=== PATIENT | male | born 1970 | race Asian ===

== ENCOUNTER 2023-11-28 17:11 | Emergency (ER) | payer BC, SELFPAY ==
[2023-11-28 17:12] VITALS: BP 160/110
--- NOTE | 2023-11-28 18:00 | ED.GENMED ---
History of Present Illness
<KALPANA Selby - Last Filed: 11/28/23 18:14>
General
Chief Complaint: Cough
Source: patient
Exam Limitations: none
Time Seen by Provider: 11/28/23 17:47
Nursing documentation reviewed up to this point in time: agreed with
Travel History
Have you had any contact with someone who has COVID-19?: No
Do you have any symptoms of coronavirus? Fever > 100 degrees, chills, cough, shortness of breath, sore throat, loss of taste or smell, muscle aches, or headache?: No
History of Present Illness
History of Present Illness:
59 y/o M presents to ED complaining of cough x 21 days. Patient reports the cough has been constant and he has been producing yellow colored phlegm. He reports the past few days he has been having chest pain with the cough and without the cough. He
reports his chest feels 'tight'. Patient also reports that yesterday his son was diagnosed with the flu. Patient is now having runny nose, chills, headache, body aches, diarrhea, SOB and scratchy throat since yesterday. He has only been taking
tylenol for his symptoms, last taken 4 hours ago. He reports the tylenol is helping. Patient denies congestion, ear pain, nausea, vomiting, diarrhea, or palpitations. Patient does have a history of a 'scar' on his lungs. He reports it has been
unchanged.
If applicable-neuro sx onset
Onset of symptoms known: Yes
Date of onset of symptoms: 11/07/23
Past History
<KALPANA Selby - Last Filed: 11/28/23 18:14>
Past History
ED Past Medical History: NIDDM and Other (kidney stones)
ED Past Surgical History: Urological (lithotripsy)
Review of Systems
<KALPANA Selby - Last Filed: 11/28/23 18:14>
Review of Systems
Allergies reviewed?: Yes
All Other Systems: ROS reviewed and negative except as documented in HPI and ROS
Constitutional: Reports chills
EENT: Reports sore throat and runny nose
Respiratory: Reports cough and trouble breathing
Cardiac: Reports chest pain
ABD/GI: Reports no symptoms
: Reports no symptoms
Musculoskeletal: Reports no symptoms
Skin: Reports no symptoms
Neurological: Reports headache
Endocrine: Reports no symptoms
Hematologic/Lymphatic: Reports no symptoms
Psychiatric: Reports no symptoms
Phy Exam
<KALPANA Selby - Last Filed: 11/28/23 18:14>
General Physical Exam
General Presentation: well appearing
General age: appears stated age
General Skin: warm and dry
General Habitus: normal
General Mental: alert
General Hydration: appears well hydrated
ENT Exam
ENT Exam: EOMI and pharynx normal
Additional ENT: R TM normal, L TM perforated?
Eye Exam
Eye Exam: PERRL, EOMI and conjunctiva normal
Cardiovascular Exam
Cardiovascular Exam: regular rate/rhythm, no edema, no gallop, no murmur and normal peripheral pulses
Pulmonary Exam
Pulmonary Exam: lungs clear and decreased breath sounds
Gastrointestinal Exam
Gastrointestinal Exam: normal bowel sounds, non tender, soft and non distended
Neurological Exam
Neurological Exam: alert and oriented x3
Musculoskeletal Exam
Musculoskeletal Exam: full ROM
Skin Exam
Skin Exam: normal color, warm/dry and no rash
Psychiatric Exam
Psychiatric Exam: normal mood/affect
Course
<KALPANA Selby - Last Filed: 11/28/23 18:14>
Orders/Labs/Results
Orders:
Orders
11/28/23 17:14
Electrocardiogram (*1) Urgent
Reason for Study: Chest Pain
EKG- Treatment ONCE
11/28/23 18:12
Influenza A+B Rapid Molecular Urgent
SHERRIE Source: Nasal Swab
Specimen Description:
CXR2 [CR Chest - 2 Views ] Urgent
Comment:
Reason For Exam: decreased breath sounds, ongoing cough x 3 weeks
11/28/23 18:14
COVID-19 Antigen Urgent
Source: Nasal Swab
11/28/23 18:59
EKG [Electrocardiogram (*1)] Urgent
Reason for Study: Chest Pain
EKG- Treatment ONCE
11/28/23 19:11
Complete Blood Count/With Diff Urgent
Comprehensive Metabolic Panel Urgent
Troponin I Urgent
Abnormal Lab Results
11/28/23
19:11
MPV 11.0 H fL
(7.4-10.4)
Absolute Lymphs (auto) 1.1 L 10^3/uL
(1.2-3.4)
Monocytes % 11.5 H %
(1.7-9.3)
BUN 24 H mg/dl
(9-20)
Glucose 175 H mg/dl
(70-99)
11/28/23 19:11
11/28/23 19:11
Vital Signs
Initial and Last Documented VS:
Initial Vital Signs
Temp Pulse Resp BP Pulse Ox
99.1 F 98 16 160/110 98
11/28/23 17:12 11/28/23 17:12 11/28/23 17:12 11/28/23 17:12 11/28/23 17:12
Last Documented Vital Signs
Temp Pulse Resp BP Pulse Ox
99.1 F 81 43 134/96 95
11/28/23 17:12 11/28/23 20:00 11/28/23 19:05 11/28/23 20:00 11/28/23 20:00
<Melvin Partida, - Last Filed: 11/28/23 23:24>
Orders/Labs/Results
Orders:
Orders
11/28/23 17:14
Electrocardiogram (*1) Urgent
Reason for Study: Chest Pain
EKG- Treatment ONCE
11/28/23 18:12
Influenza A+B Rapid Molecular Urgent
SHERRIE Source: Nasal Swab
Specimen Description:
CXR2 [CR Chest - 2 Views ] Urgent
Comment:
Reason For Exam: decreased breath sounds, ongoing cough x 3 weeks
11/28/23 18:14
COVID-19 Antigen Urgent
Source: Nasal Swab
11/28/23 18:59
EKG [Electrocardiogram (*1)] Urgent
Reason for Study: Chest Pain
EKG- Treatment ONCE
11/28/23 19:11
Complete Blood Count/With Diff Urgent
Comprehensive Metabolic Panel Urgent
Troponin I Urgent
Abnormal Lab Results
11/28/23
19:11
MPV 11.0 H fL
(7.4-10.4)
Absolute Lymphs (auto) 1.1 L 10^3/uL
(1.2-3.4)
Monocytes % 11.5 H %
(1.7-9.3)
BUN 24 H mg/dl
(9-20)
Glucose 175 H mg/dl
(70-99)
11/28/23 19:11
11/28/23 19:11
Vital Signs
Initial and Last Documented VS:
Initial Vital Signs
Temp Pulse Resp BP Pulse Ox
99.1 F 98 16 160/110 98
11/28/23 17:12 11/28/23 17:12 11/28/23 17:12 11/28/23 17:12 11/28/23 17:12
Last Documented Vital Signs
Temp Pulse Resp BP Pulse Ox
99.1 F 81 43 134/96 95
11/28/23 17:12 11/28/23 20:00 11/28/23 19:05 11/28/23 20:00 11/28/23 20:00
<KALPANA Selby - Last Filed: 11/28/23 18:14>
MDM/Problems Addressed
Differential Diagnosis Includes:
PNA
COVID
Flu
URI
<Melvin Partida DO - Last Filed: 11/28/23 23:24>
*Critical Care Note
Total Time (30-74mins, 75-104mins- exclusive of procedures): Not Applicable
<Melvin Partida DO - Last Filed: 11/28/23 23:24>
Update Note
Update Note:
11/28/20232004 PM: Patient feeling better. Discussed EKG and troponin lab work with patient. Patient has influenza. He does have a history of a 21-day cough. Will prescribe steroids and cough medicine with follow-up with pulmonology for further
evaluation.
ED Attending Note
<KALPANA Selby - Last Filed: 11/28/23 18:14>
-
Portions of this chart may have been created with voice recognition software.� Occasional wrong word or��sound alike� substitutions may have occurred due to the inherent limitations of voice recognition software.
<Melvin Partida DO - Last Filed: 11/28/23 23:24>
ED Attending Note
Patient seen and examined by attending physician: Yes
I performed the substantive portion of visit, reviewed & personally made and approve the management plan that is documented in note by myself or MILA.: Yes
ED Attending Note:
Is a pleasant 59-year-old male that presents with a persistent cough for the last 3 weeks. He does report that the cough has been constant and occasionally productive of yellow phlegm. Patient does report having chest pain intermittently during
this timeframe. He states that for the last 24 hours, his chest has felt tight. He has been exposed to the flu as his son was diagnosed yesterday. Patient is now starting to develop more flulike symptoms. Patient was seen in conjunction with the
PA student. I have reviewed and agree with the history and treatment plan presented. On my independent physical exam, patient is awake, alert, and oriented x3, minimal acute distress. Heart is regular rate and rhythm. Lungs are clear to
auscultation bilaterally. Moves all 4 extremities. Skin is warm and dry.
EKG shows normal sinus rhythm rate 82 with normal intervals, normal axis. No evidence of acute ischemia present. He possibly left ventricular hypertrophy based on amplitude. EKG when compared with previous EKG dated November 03, 2022, similar
morphology and voltage noted.
Discharge Plan
Departure
Patient Disposition: Home (Routine Discharge)
Date of Disposition: 11/28/23
Time of Disposition: 20:06
Patient with high blood pressure during this ER visit?: Yes
Condition: Good
Discharge Problem:
Influenza A, Cough
Instructions: Flu, Adult (DC), Cough, Adult (DC), BLOOD PRESSURE
Prescriptions:
New
albuterol sulfate [ProAir HFA] 90 mcg/actuation HFA aerosol inhaler
1 puff inhalation Q4HPRN PRN (Reason: shortness of breath) Qty: 8.5 0RF
benzonatate 100 mg capsule
100 mg PO Q4H PRN (Reason: Cough) Qty: 20 0RF
prednisone 50 mg tablet
50 mg PO DAILY Qty: 5 0RF
No Action
metformin 1,000 MG tablet
1,000 mg PO BID
Referrals:
Melodie Lawler MD [Active] - Call in 1-3 days for appt
John Miller MD [Family Provider] -
Activity Restrictions/Additional Instructions:
Your prescriptions were sent to the pharmacy you specified
It was a pleasure meeting you and taking part in your care. We hope for your continued healing and wellness.
Please read discharge instructions in their entirety. However, they are for general education and may not describe your exact diagnosis at discharge. Information on your ER visit and medical conditions were discussed with you along with appropriate
follow up information...
If indicated, please take your medications as instructed and indicated on discharge paperwork.
Please schedule a follow up appointment as directed. Call to schedule an appointment
Please return to the emergency department with ANY change in, persisting, or worsening of symptoms. If any of your symptoms do not improve, or persist, or become more severe within 6-12 hours, please return to the emergency department for further
care.
Please return to the emergency department if you develop a headache, neck pain/stiffness, fever greater than 100.4F, chest pain, shortness of breath, persistent nausea, vomiting, slurred speech, difficulty walking, numbness/tingling, weakness, signs
of infection or any other symptoms that are worrisome to you.
If you have any questions or concerns please do not hesitate to call the Hospital at or E-mail me directly at [email or web address]
Interventions
Interventions:
*Risk Screen - Suicide Last Done: 11/28/23 18:15
*General Assessment Last Done: 11/28/23 18:15
*Neglect/Abuse Screening Last Done: 11/28/23 18:15
*ED COVID-19 Vaccine History Last Done: 11/28/23 17:12
*Nursing Disposition Last Done: 11/28/23 20:10
ED- Pulmonary Assessment Last Done: 11/28/23 18:15
Discharge Date and Time
Discharge Date/Time: 11/28/23 21:05
[2023-11-28 18:43] LABS: COVID-19 Antigen Negative (Negative)
[2023-11-28 19:05] VITALS: BP 128/90
[2023-11-28 19:18] LABS: % Basophils 0.2 % (0-2); % Eosinophils 0.4 % (0-6); % Immature Granulocytes 0.2 % (0-0.5); % Lymphocytes 22.6 % (20.5-51.1); % Monocytes 11.5 % (1.7-9.3); % Neutrophils 65.1 % (42.2-75.2); Absolute Lymphocytes 1.1 10^3/uL (1.2-3.4); Absolute Monocytes 0.6 10^3/uL (0.1-0.6); Absolute Neutrophils 3.1 10^3/uL (1.4-6.5); Hematocrit 43.5 % (39.0-52.0); Hemoglobin 14.7 g/dL (13.0-18.0); Mean Corp Hgb Conc. 33.8 g/dL (33.0-37.0); Mean Corpuscular Hgb 29.2 pg (27.0-31.0); Mean Corpuscular Volume 86.5 fL (80.0-94.0); Nucleated Red Blood Cells % 0 % (-); Platelet Count 141 10^3/uL (130-400); Red Blood Cell Count 5.03 10^6/uL (4.70-6.10); Red Cell Dist. Width 11.9 % (11.5-14.5); White Blood Cell Count 4.8 10^3/uL (4.8-10.8)
[2023-11-28 19:37] LABS: ALT (SGPT) 23 U/L (0-50); AST (SGOT) 26 U/L (17-59); Albumin 4.4 g/dl (3.5-5.0); Alkaline Phosphatase 75 U/L (38-126); Blood Urea Nitrogen 24 mg/dl (9-20); Calcium 8.9 mg/dl (8.4-10.2); Carbon Dioxide 27 mmol/L (22-30); Chloride 102 mmol/L (98-107); Glucose 175 mg/dl (70-99); Potassium 4.2 mmol/L (3.5-5.1); Sodium 135 mmol/L (135-145); Total Bilirubin 0.7 mg/dl (0.2-1.3); Total Protein 7.4 g/dl (6.3-8.2); eGFR > 60.00
[2023-11-28 19:49] LABS: Troponin I < 0.012 ng/ml
[2023-11-28 20:00] VITALS: BP 134/96
== END 2023-11-28 21:05 | disposition home or self-care (01) ==
LOC: EMR 17:11
PROVIDERS: EMERGENCY PHYSICIAN Student in an Organized Health Care Education/Training Program; FAMILY PHYSICIAN Internal Medicine
DX: J10.1 Influenza due to other identified influenza virus with other respiratory manifestations (principal); R05.9 Cough, unspecified; R51.9 Headache, unspecified; R19.7 Diarrhea, unspecified; Z11.52 Encounter for screening for COVID-19; R03.0 Elevated blood-pressure reading, without diagnosis of hypertension; E11.9 Type 2 diabetes mellitus without complications; Z79.84 Long term (current) use of oral hypoglycemic drugs; Z87.442 Personal history of urinary calculi
CPT/HCPCS: 99284; 71046; 80053; 84484; 85025; 87502; 87811; 93005

== ENCOUNTER 2024-01-18 14:06 | Observation (INO) | payer BC, SELFPAY ==
[2024-01-18] VITALS (13 sets, daily range): BP systolic 105–128; BP diastolic 65–95; PULSE 52–85; BMI 24.0; BMI 23.7
--- NOTE | 2024-01-18 12:00 | EDRN ---
Received patient on stretcher. Patient stated that he has been feeling dizzy since the end of December especially when he changes positions. Patient stated that he feels like the room is spinning when he stands up. Patient stated that it got worse
today and lost his balance and fell. Denies any weakness,numbness/tingling,speech difficulty,headache and visual changes. LUCIANO x 4 equally. Pupils are equal and reactive to light. Smile is equal. Tongue is midline.
[2024-01-18 12:20] LABS: % Basophils 0.8 % (0-2); % Eosinophils 1.1 % (0-6); % Immature Granulocytes 0.3 % (0-0.5); % Lymphocytes 41.8 % (20.5-51.1); % Monocytes 7.2 % (1.7-9.3); % Neutrophils 48.8 % (42.2-75.2); Absolute Lymphocytes 1.6 10^3/uL (1.2-3.4); Absolute Monocytes 0.3 10^3/uL (0.1-0.6); Absolute Neutrophils 1.8 10^3/uL (1.4-6.5); Hematocrit 46.3 % (39.0-52.0); Hemoglobin 15.2 g/dL (13.0-18.0); Mean Corp Hgb Conc. 32.8 g/dL (33.0-37.0); Mean Corpuscular Hgb 28.7 pg (27.0-31.0); Mean Corpuscular Volume 87.4 fL (80.0-94.0); Mean Platelet Volume 10.3 fL (7.4-10.4); Nucleated Red Blood Cells % 0 % (-); Platelet Count 166 10^3/uL (130-400); Red Cell Dist. Width 12.3 % (11.5-14.5); White Blood Cell Count 3.8 10^3/uL (4.8-10.8)
[2024-01-18 12:34] LABS: ALT (SGPT) 30 U/L (0-50); AST (SGOT) 25 U/L (17-59); Albumin 4.9 g/dl (3.5-5.0); Alkaline Phosphatase 73 U/L (38-126); Blood Urea Nitrogen 22 mg/dl (9-20); Calcium 9.5 mg/dl (8.4-10.2); Carbon Dioxide 25 mmol/L (22-30); Chloride 104 mmol/L (98-107); Estimated Creatinine Clearance 65 ml/min; Glucose 157 mg/dl (70-99); Potassium 4.5 mmol/L (3.5-5.1); Sodium 138 mmol/L (135-145); Total Bilirubin 0.9 mg/dl (0.2-1.3); Total Protein 7.7 g/dl (6.3-8.2); eGFR > 60.00
--- NOTE | 2024-01-18 12:35 | ED.GENMED ---
History of Present Illness
General
Chief Complaint: Dizziness
Time Seen by Provider: 01/18/24 11:30
Travel History
Have you had any contact with someone who has COVID-19?: No
Do you have any symptoms of coronavirus? Fever > 100 degrees, chills, cough, shortness of breath, sore throat, loss of taste or smell, muscle aches, or headache?: No
History of Present Illness
History of Present Illness:
53-year-old male with history of ccy-jiwazpb-pvxavefzv diabetes and hyperlipidemia presents to the emergency department for evaluation of dizziness and difficulty walking for the past 3 weeks. Symptoms are worsening, has had several falls as a
result of the gait instability. He also plays tennis and notes that he can no longer have the ball adequately which would be highly irregular for him. He denies any headaches or vision changes. Does feel as though his symptoms are worse when he
is upright or walking. No chest pain or shortness of breath, denies speech difficulty or extremity paresthesias
Past History
Past History
ED Past Medical History: NIDDM and Other (kidney stones)
ED Past Surgical History: Urological (lithotripsy)
Review of Systems
Review of Systems
Allergies reviewed?: Yes
All Other Systems: ROS reviewed and negative except as documented in HPI and ROS
Phy Exam
Physical Exam
Physical Exam:
GEN: Well appearing, NAD, WDWN
HEENT: Oral mucosa moist, no scleral icterus, no nasal congestion
Cardiac: Regular rate and rhythm, no murmurs
Lung: No respiratory distress, no tachypnea
MSK: No gross deformity or injuries
Skin: Good color, no pallor or jaundice, no rashes
Neuro: AO x3; CN II-XII grossly intact. BUE strength 5/5 in all osorio, sensation intact and symmetric. BLE strength 5/5 in all osorio, sensation intact and symmetric. No limb ataxia x 4. Profoundly positive Romberg, severe ataxia without
lateralized preference
Psych: Calm, cooperative
Course
Orders/Labs/Results
Orders:
Orders
01/18/24 11:13
EKG [Electrocardiogram (*1)] Urgent
Reason for Study: Vertigo / Dizzy
EKG- Treatment ONCE
01/18/24 11:46
CT Head W/o Iv Contrast Urgent
Comment:
Reason For Exam: dizziness/abnormal gait
01/18/24 11:56
Complete Blood Count/With Diff Urgent
Comprehensive Metabolic Panel Urgent
Ferritin Urgent
Comment: ADD ON
Folate Urgent
Comment: ADD ON
Glycohemoglobin (HgbA1c) Urgent
TSH Reflex To Free T4 Urgent
Comment: ADD ON
Vitamin B12 Urgent
Comment: ADD ON
01/18/24 12:34
Consult Neurology [NEUROLOGY CONSULT] Urgent
Consulting Provider: Spencer Lynn
Was physician already notified: Yes
01/18/24 13:13
Add On- LAB Routine
Tests Added?: folate, ferritin, TSH reflex, B12, lipid panel, hbA1c
01/18/24 13:16
Lipid Profile [Cardiovascular Evaluation] Routine
Comment: May add to blood work in lab
01/18/24 13:17
dimenhyDRINATE 50 mg IV NOW ONE
Orthostatic Vital Signs As Directed
Orthostatic VS Frequency: BID
Comment: lying flat x 3 mins then check, seated 3 minutes check, stand 3 mins check
Abnormal Lab Results
01/18/24
11:56
WBC 3.8 L 10^3/uL
(4.8-10.8)
MCHC 32.8 L g/dL
(33.0-37.0)
BUN 22 H mg/dl
(9-20)
Glucose 157 H mg/dl
(70-99)
01/18/24 11:56
01/18/24 11:56
Vital Signs
Initial and Last Documented VS:
Initial Vital Signs
Temp Pulse Resp BP Pulse Ox
97.9 F 58 17 123/87 100
01/18/24 11:14 01/18/24 11:14 01/18/24 11:14 01/18/24 11:14 01/18/24 11:14
Last Documented Vital Signs
Temp Pulse Resp BP Pulse Ox
97.9 F 58 17 123/87 100
01/18/24 11:14 01/18/24 11:14 01/18/24 11:14 01/18/24 11:14 01/18/24 11:45
MDM/Problems Addressed
MDM/Problems Addressed:
53-year-old male presents due to ataxia and gait instability. Neurologic exam is remarkable for ataxia and positive Romberg, initial head CT is unremarkable. Diagnostic considerations at this time include subacute stroke,
neurodegenerative/demyelinating syndrome, orthostasis, autonomic dysfunction. Patient was seen in consultation by neurology and at this time recommending admission for further neurologic workup
Comment
Comment:
EKG independently interpreted by me shows a sinus bradycardia at a rate of [address] changes concerning for ischemia, QTc of 364
*Critical Care Note
Total Time (30-74mins, 75-104mins- exclusive of procedures): Not Applicable
ED Attending Note
-
Portions of this chart may have been created with voice recognition software.� Occasional wrong word or��sound alike� substitutions may have occurred due to the inherent limitations of voice recognition software.
Discharge Plan
Departure
Patient Disposition: Admit
Date of Disposition: 01/18/24
Time of Disposition: 13:21
Admit to: Med/Surg
Presentation/result/management discussed w/ accepting MD/DO: Hospitalist
Discharge Problem:
Ataxia
Prescriptions:
No Action
metformin 1,000 MG tablet
1,000 mg PO BID
albuterol sulfate [ProAir HFA] 90 mcg/actuation HFA aerosol inhaler
1 puff inhalation Q4HPRN PRN (Reason: shortness of breath) Qty: 8.5 0RF
benzonatate 100 mg capsule
100 mg PO Q4H PRN (Reason: Cough) Qty: 20 0RF
prednisone 50 mg tablet
50 mg PO DAILY Qty: 5 0RF
Referrals:
John Miller MD [Family Provider] -
Interventions
Interventions:
*Risk Screen - Suicide Last Done: 01/18/24 11:14
*General Assessment Last Done: 01/18/24 11:14
*Neglect/Abuse Screening Last Done: 01/18/24 11:14
ED- Fall Risk Assessment Last Done: 01/18/24 11:45
*ED COVID-19 Vaccine History Last Done: 01/18/24 11:14
ED- Neurological Assessment Last Done: 01/18/24 11:45
ED- Cardiac Assessment Last Done: 01/18/24 11:45
Discharge Date and Time
Print Language: EGYPTIAN
--- NOTE | 2024-01-18 12:56 | CON.NEURO4 ---
Addendum entered and electronically signed by Spencer Lynn MD 01/18/24 14:21:
Studies reviewed.
I have personally examined the patient. I reviewed and agree with the OFFICE CLERK's Note.
My addenda:
Awake, alert, interactive. No acute distress.
Speech intact.
Follows 2-step requests w/o difficulty. No tremor. Negative Hints testing
Extra-ocular movements grossly intact.
Facial movements full and symmetric. Hearing intact to normal conversational volume.
Normal UE movements bilaterally.
Neck: full ROM.
Chest: no dyspnea
Heart: no JVD
Ext: (-) Clubbing, (-) Cyanosis, (-) Edema
IMPRESSIONS/RECOMMENDATIONS:
Abrupt onset of dizziness
Unclear if this represents 2 processes including acute axial cerebellar lesion in the form of a stroke as well as orthostasis
Check MRI of brain with MRA head and neck to determine if stenosis is present and/or stroke
Rehabilitation evaluations
Follow orthostatic blood pressures
Encourage water intake for possible orthostasis
Provide dimenhydrinate
Okay to start aspirin 81 mg daily
Follow lipid profile
Goal of normoglycemia
Goal of normotension as the patient symptomatology began weeks ago
Will continue to follow patient.
Original Note:
Documented by User: Gretchen Garcia NP 01/18/24 14:12
Consultation - Neurology 4
-
CONSULTING PHYSICIAN: Spencer Lynn MD
REFERRING PHYSICIAN: ER/Christopher Klein PA-C
DICTATED BY: CHENG Beltrán
DATE/TIME OF REQUEST: 01/18/24
DATE/TIME OF CONSULTATION: 01/18/24
Reason for Consultation: Dizziness, ataxia
History of Present Illness:
This is a 53-year-old right-handed male who has presented to the hospital with report of dizziness and ataxia. Patient report that on 12/29/23 he only slept for a few hours and then completed a [address] That evening he developed a sudden onset
spinning sensation lasting a few minutes. In the following days he reports continuing to have short bursts of spinning dizziness that were becoming longer as the days passed. Additionally, he reports feeling light-headed and off-balance with
position change and ambulation. This has been worsening too and for the past three days has been constant. His gait is unsteady and if he doesn't hold onto something for balance he falls to his left or right. Lying down still makes his symptoms
improve but moving at all triggers a dizzy sensation. He is very active and plays tennis frequently. Three days ago on 01/15/24 he was playing tennis and reports that he was uncoordinated, he couldn't get his racket to hit the ball which is extremely
unusual for him. He denies any headache, neck/back pain, vision changes, speech/swallow difficulty, hearing changes/tinnitus, numbness, weakness, nausea/vomiting, chest pain, palpitations, and shortness of breath. He denies any issues with hand
dexterity/using his cell phone. He was unable to get into see his PCP for several weeks so he decided to go to urgent care this morning. They checked his orthostatic vital signs and noted that his SBP went from 120 to 90 with sitting up and they
referred him to the ER for evaluation. CT head was obtained on arrival to the ER and is negative for any acute abnormalities. He denies any recent fevers/illness, and history of vertigo, TIA, or stroke in the past and he is not taking any blood
thinning medications. He was provided aspirin 162mg in the ER.
Past Medical History: NIDDM, HLD, renal calculi
Surgical History: uretal stent
Family History: Reviewed and noncontributory.
Social History: Former tobacco.
Allergies: No known allergies.
Home Medications: See below.
Review of Symptoms:
Patient denies any fever, headache, chest pain, shortness of breath, GI or symptoms.
�Per the HPI.�All systems are reviewed negative except above.
Physical Exam:
The patient is afebrile, abdomen is nondistended, breathing is unlabored, skin is warm and dry, no edema.
NIH Stroke Scale:
I performed the NIH stroke scale on the patient on 01/18/24 at 1300. The patient scored 0 points on the NIH stroke scale assessment, which were assigned as follows: See below.
Neurologic Examination:
The patient is awake, alert and oriented x 3. He is able to follow commands and answer questions appropriately. There is no aphasia or dysarthria. On cranial nerve assessment, pupils are 3 mm bilateral, round and reactive to light and
accommodation. Visual boyle are full. Extraocular movements are intact. No nystagmus. Facial sensations are intact and bilaterally symmetrical, there is no facial asymmetry. Hearing is intact bilaterally to normal conversation volume. Tongue palate
and uvula are midline. Sternocleidomastoid strengths are full bilaterally. Motor strengths are 5/5 bilateral upper and lower extremities on medical research Shubuta scale. There is no drift or involuntary movement noted. Deep tendon reflexes are 2+
bilateral upper and 1+ lower extremities and Babinski is absent bilaterally. There was no extinction noted on double simultaneous stimulation. Coordination is intact by finger to nose bilaterally.
Lab Results: See below.
Neuro Imaging:
1. CT Head 01/18/24: There are no intracranial abnormalities. There is mild left ethmoid sinusitis
Differentials for the patient's presentation include:
1. Concern for a brainstem stroke.
2. Orthostatic hypotension.
Patient has the following risk factors for their symptoms: NIDDM, HLD
IV Tenecteplase/IAT candidacy: He is not a candidate for TNK/IAT due to outside of time window.
Recommendations:
-Continue aspirin 81mg daily.
-MRI brain noncontrast, MRA head/neck ordered/pending.
-Check orthostatic vital signs BID. Encourage increased fluid intake.
-Provide dimenhydrinate 50mg IV x1 now and q4hrs PRN dizziness.
-Checking blood work for metabolic abnormalities.
-If MRI brain demonstrates a stroke, LDL goal will be <70. Lipid panel pending.
-Goal normoglycemia, hbA1c pending.
-NIHSS and neurological checks per unit guidelines.
-Provide patient with a stroke education packet.
-PT/OT/ST evaluations.
-DVT prophylaxis.
Discussed patient care with: Dr. Lynn, the patient
Vital Signs and Labs
-
Vital Signs and Labs:
Vital Signs
Temp Pulse Resp BP Pulse Ox
97.9 F 58 17 123/87 100
01/18/24 11:14 01/18/24 11:14 01/18/24 11:14 01/18/24 11:14 01/18/24 11:45
Lab Results
01/18/24 11:56
01/18/24 11:56
Sodium 138 mmol/L (135-145) 01/18/24 11:56
Potassium 4.5 mmol/L (3.5-5.1) 01/18/24 11:56
BUN 22 mg/dl (9-20) H 01/18/24 11:56
Glucose 157 mg/dl (70-99) H 01/18/24 11:56
Calcium 9.5 mg/dl (8.4-10.2) 01/18/24 11:56
NIH Stroke Score
Subsequent NIH Scale
Date of Subsequent NIH Scale: 01/18/24
Time of Subsequent NIH Scale: 13:00
NIH Stroke Score
Level of Consciousness: 0 - Alert
LOC Questions: 0-Answers both correctly
LOC Commands: 0-Performs both correctly
Best Horizontal Gaze: 0-Normal
Visual Boyle: 0=Normal, no visual loss
Facial Palsy: 0=Normal, symmetrical
Motor - Right Arm: 0=No drift 10 seconds
Motor - Left Arm: 0=No drift 10 seconds
Motor - Right Le-No drift 5 seconds
Motor - Left Le-No drift 5 seconds
Limb Ataxia: 0-Absent
Sensation: 0-Normal
Best Language: 0-No aphasia
Dysarthria: 0-Normal
Extinction and Inattention: 0-No abnormality
Total Score:: 0
Medications
-
Home Medications
�Medication �Instructions �Recorded
metformin 1,000 mg tablet 1,000 mg PO BID 03/02/17
albuterol sulfate 90 mcg/actuation 1 puff inhalation Q4HPRN PRN 11/28/23
aerosol inhaler (ProAir HFA) shortness of breath #8.5 grams
benzonatate 100 mg capsule 100 mg PO Q4H PRN Cough #20 caps 11/28/23
prednisone 50 mg tablet 50 mg PO DAILY #5 tabs 11/28/23

Documented by User: Spencer Lynn MD 01/18/24 14:14
NIH Stroke Score
NIH Stroke Score
Total Score:: 0
--- NOTE | 2024-01-18 13:22 | HPS.HSE ---
Family Physician
-
Family Physician: John Miller
Chief Complaint
-
Dizziness
History of Present Illness
53-year-old male with history of emz-dbyokqp-zrcyxedie diabetes and hyperlipidemia presents to us with dizziness and difficulty walking for the past 3 weeks. Stated dizziness started 20 days ago. He was getting intermittent dizziness.
Progressively got worse. Patient stated, he is off balance. He also plays tennis and notes that he can no longer have the ball adequately which would be highly irregular for him. Patient gets extremely dizzy and feel like the room is spinning
when he changes the position. Complaint of very light headache on top of his head. he denies blurry vision, numbness, tingling . Patient denied any chest pain or short of breath .patient denied abdominal pain, nausea, vomiting, diarrhea. Patient
denied dysuria hematuria.
Head CT with no acute findings. Admitting for further management
Medical History
Past Medical History
Past Medical History: Reports Other
Additional Past Medical History:
Kidney stones
Type 2 diabetes
Hyperlipidemia
Bradycardia
Past Surgical History: Reports Other
Additional Past Surgical History:
Kidney stone surgery
Social History
Tobacco: Non-smoker
Alcohol: None
Drug: None
Personal:
Living: With Family
Family History
Family History: Not pertinent
Allergies / Home Medications
Allergies reflects when Allergies were last updated in [employer].
Home Medications with original date entered in [employer]
Allergy/Medication List:
Allergies
Allergy/AdvReac Type Severity Reaction Status Date / Time
No Known Allergies Allergy Verified 11/28/23 17:14
Home Medications
metformin 1,000 mg tablet 1,000 mg PO BID 03/02/17
albuterol sulfate 90 mcg/actuation aerosol inhaler (ProAir HFA) 1 puff inhalation Q4HPRN PRN shortness of breath #8.5 grams 11/28/23
benzonatate 100 mg capsule 100 mg PO Q4H PRN Cough #20 caps 11/28/23
prednisone 50 mg tablet 50 mg PO DAILY #5 tabs 11/28/23
Review of Systems
-
Constitutional: Reports No Symptoms
EENT: Reports No Symptoms
Respiratory: Reports No Symptoms
Cardiac: Reports No Symptoms
Abdomen/GI: Reports No Symptoms
: Reports No Symptoms
Musculoskeletal: Reports No Symptoms
Skin: Reports No Symptoms
Neurological: Reports Dizzy and Headache
Endocrine: Reports No Symptoms
Hematologic/Lymphatic: Reports No Symptoms
Psych: Reports No Symptoms
Physical Exam
Vital Signs
Vital Signs
Temp Pulse Resp BP Pulse Ox
97.9 F 58 17 123/87 100
01/18/24 11:14 01/18/24 11:14 01/18/24 11:14 01/18/24 11:14 01/18/24 11:45
Physical Exam
General: Well Developed, Well Nourished and No Apparent Distress
HEENT: NormoCephalic, Moist mucous membranes and Atraumatic
Respiratory: Clear
Cardiac: S1/S2 and Regular Rhythm; No Murmur or Rub
GI: Soft, Non Tender, Non Distended and Normal Bowel Sounds; No Organomegaly
Rectal: Deferred by Provider
Musculoskeletal: No Clubbing, No Cyanosis and No Edema
Skin: No Rash
Neuro: AO x 3 and Nonfocal/grossly intact
Psych: Calm
Laboratory Results
-
01/18/24 11:56
01/18/24 11:56
Laboratory Results
Total Bilirubin 0.9 mg/dl (0.2-1.3) 01/18/24 11:56
AST 25 U/L (17-59) 01/18/24 11:56
ALT 30 U/L (0-50) 01/18/24 11:56
Alkaline Phosphatase 73 U/L (38-126) 01/18/24 11:56
Data Reviewed
-
CT Scan: Report Reviewed by me
Lab Data: Labs Reviewed by me
Impression/Plan
-
# New onset ataxia rule out acute CVA/TIA
-CT head negative
-MRI/MRA
-Obtain A1c and lipid profile
-Aspirin and statin continued
-PT/OT consult
-Neurology consulted
#DM-2
Hold Metformin
-CHo diet
-sliding scale
#Hypercholesterolemia
-statin continued
#DVT proph: SCDs.
[2024-01-18] MEDS: dimenhyDRINATE 50 MG IV (13:48)
[2024-01-18] MEDS: NSS (PRESERVATIVE FREE) 10 ML INJ (13:48)
[2024-01-18 14:07] LABS: Glycohemoglobin (HgbA1c) 7.8 % (4.0-5.6)
--- NOTE | 2024-01-18 14:24 | W.PN.UPDATE ---
Update Note
Progress Note Update
This note serves as an addendum to H&P written by CELL OPERATION SUPERVISOR Karina Mancuso
I saw and examined the patient.
The CELL OPERATION SUPERVISOR's note was reviewed and I agree with the note.
Comment:
Mr. Marline Edward is a 53 yo man with hx DM who presents to the ER with 20 days of dizziness with worsening balance issues and coordination over past 10 days. + vertigo. Triage vitals stable. Labs with WBC 3.8, Hg 15.2, Na 138, Cr 1.3, Glucose 157.
Head CT without acute event.
Patient will be admitted for further work-up with MRI/MRA. Give aspirin now and continue daily. PT/OT. Appreciate Neuro.
[2024-01-18] MEDS: LOW STRENGTH ASPIRIN 162 MG PO (14:25)
[2024-01-18 16:02] LABS: TSH Reflex To Free T4 2.55 uIU/ml (0.47-4.68)
[2024-01-18 16:37] LABS: Folate > 20.0 ng/ml (2.76-20); Vitamin B12 601 pg/ml (239-931)
[2024-01-18 18:01] LABS: HDL Cholesterol 39 mg/dl; LDL Cholesterol, Calculated 104 mg/dl; Total Cholesterol 160 mg/dl (50-199); Triglyceride 85 mg/dl (10-149); Very Low Density Lipoprotein 17 mg/dl (0-30)
--- NOTE | 2024-01-18 18:15 | PTCARENOTE ---
01/17- Patient transferred and oriented to unit without issue. AAOX3; current NIH=0; Neuro checks WNL at this time; Skin CDI. Patient denies any complaints or needs at this time.
[2024-01-18 18:18] LABS: Glucose - Point of Care 106 mg/dl (70-99)
[2024-01-18] MEDS: NOVOLOG FLEXPEN-LOW RESISTANCE SC (18:23)
--- NOTE | 2024-01-18 18:35 | EDRN ---
Patient taken to room 419-1 on stretcher on monitor by speech therapist technician.
[2024-01-18 21:56] LABS: Glucose - Point of Care 177 mg/dl (70-99)
[2024-01-19] VITALS (7 sets, daily range): BP systolic 105–134; BP diastolic 61–96; PULSE 48–84
--- NOTE | 2024-01-19 04:54 | DOWNTIME ---
There was a [employer] Client Sizing Machine Operator Downtime on 01/19/2024 from 0100 to 01/19/2024 at 0439. Downtime documentation of patient's care, including medication administrations, has been reconciled in the electronic record per guidelines. Refer to the
patient's paper chart under the miscellaneous tab to see printed paper medication records and downtime forms.
--- NOTE | 2024-01-19 07:29 | W.PN.NEURO.1 ---
Today's Communication / Plan
-
Rehabilitation evaluations
Follow orthostatic blood pressures
Provide dimenhydrinate
Discontinue aspirin 81 mg daily
Atorvastatin as outpatient due to lipid profile showing LDL > 100
Goal of normoglycemia
Goal of normotension
We will follow as needed.
Neuro Assessment/Plan
Assessment
IMPRESSIONS/RECOMMENDATIONS:
Abrupt onset of dizziness
No evidence acute processes of a stroke or orthostasis
MRI of brain with MRA head and neck to determine if stenosis is present and/or stroke are normal
Plan
Rehabilitation evaluations
Follow orthostatic blood pressures
Provide dimenhydrinate
Discontinue aspirin 81 mg daily
Atorvastatin as outpatient due to lipid profile showing LDL > 100
Goal of normoglycemia
Goal of normotension
We will follow as needed.
Subjective/Objective
Subjective Data
Date of Service: January 19, 2024
Objective Data
Vital Signs
Temp Pulse Resp BP Pulse Ox
36.3 C 55 18 121/78 98
01/19/24 03:50 01/19/24 03:50 01/19/24 03:50 01/19/24 03:50 01/19/24 03:50
Sodium 138 mmol/L (135-145) 01/18/24 11:56
Potassium 4.5 mmol/L (3.5-5.1) 01/18/24 11:56
BUN 22 mg/dl (9-20) H 01/18/24 11:56
Glucose 157 mg/dl (70-99) H 01/18/24 11:56
Calcium 9.5 mg/dl (8.4-10.2) 01/18/24 11:56
LDL Cholesterol, Calc Cancelled 01/18/24 13:16
Vitamin B12 601 pg/ml (239-931) 01/18/24 11:56
Patient Allergies
No Known Allergies Allergy (Verified 11/28/23 17:14)
Past History
Past History
ED Past Medical History: NIDDM and Other (kidney stones)
ED Past Surgical History: Urological (lithotripsy)
Family History
Family History: Other (reviewed and non-contributory)
Medications
-
Medications:
Generic Name Dose Route Start Last Admin
Trade Name Freq PRN Reason Stop Dose Admin
Acetaminophen 650 mg 01/18/24 18:12
Acetaminophen 650 Mg Rectal Suppository RECTAL 02/15/24 18:11
Q4HPRN PRN
BLISS, mild pain, or temp >100.4F
Acetaminophen 650 mg 01/18/24 18:12
Acetaminophen 325 Mg Tablet PO 02/15/24 18:11
Q4HPRN PRN
BLISS, mild pain, or temp >100.4F
Aspirin 81 mg 01/19/24 08:00
Aspirin 81 Mg Chewable Tablet PO 02/16/24 07:59
DAILY NAJMA
Atorvastatin Calcium 40 mg 01/18/24 18:12 01/18/24 19:13
Atorvastatin (Lipitor) 40 Mg Tablet PO 02/15/24 18:11 Not Given
QPM NAJMA
Dextrose 12.5 grams 01/18/24 18:12
Dextrose 50% (0.5 Grams/Ml) 50 Ml Syringe IV 02/15/24 18:11
[id number] PRN
hypoglycemia
Protocol
Dimenhydrinate 50 mg 01/18/24 18:00
Dimenhydrinate 50 Mg/Ml Vial IV 02/15/24 17:59
Q4HPRN PRN
dizziness
Glucagon 1 mg 01/18/24 18:12
Glucagon 1 Mg Vial IM 02/15/24 18:11
PRN PRN
hypoglycemia
Protocol
Insulin Aspart 0 units 01/18/24 18:12 01/18/24 18:23
Insulin Aspart Low Resistance 300 Units/3 Ml Pen.Injctr SC 02/15/24 18:11 Not Given
AC NAJMA
Protocol
Sodium Chloride 10 ml 01/18/24 18:00
Sodium Chloride 0.9% (Preservative Free) 10 Ml Vial INJ 02/15/24 17:59
Q4HPRN PRN
IV dimenhyDRINATE dilution
[2024-01-19 08:54] LABS: Glucose - Point of Care 141 mg/dl (70-99)
[2024-01-19] MEDS: NOVOLOG FLEXPEN-LOW RESISTANCE SC (09:00)
[2024-01-19 10:18] LABS: Hematocrit 46.5 % (39.0-52.0); Hemoglobin 15.2 g/dL (13.0-18.0); Mean Corp Hgb Conc. 32.7 g/dL (33.0-37.0); Mean Corpuscular Hgb 28.3 pg (27.0-31.0); Mean Corpuscular Volume 86.6 fL (80.0-94.0); Mean Platelet Volume 10.7 fL (7.4-10.4); Platelet Count 167 10^3/uL (130-400); Red Blood Cell Count 5.37 10^6/uL (4.70-6.10); Red Cell Dist. Width 12.2 % (11.5-14.5); White Blood Cell Count 4.1 10^3/uL (4.8-10.8)
[2024-01-19 11:10] LABS: Blood Urea Nitrogen 25 mg/dl (9-20); Calcium 9.3 mg/dl (8.4-10.2); Carbon Dioxide 26 mmol/L (22-30); Chloride 104 mmol/L (98-107); Estimated Creatinine Clearance 70 ml/min; Glucose 145 mg/dl (70-99); Potassium 4.5 mmol/L (3.5-5.1); Sodium 137 mmol/L (135-145); eGFR > 60.00
--- NOTE | 2024-01-19 11:25 | W.PN.HOSP.TC ---
Today's Communication/Plan
-
F/U TTE results
Assessment / Plan
Assessment / Plan
Mr. Marline Edward is a 53 yo man with hx DM who presents to the ER with 20 days of dizziness with worsening balance issues and coordination over past 10 days,
BRAIN MRI
HEAD MRA
NECK MRA
IMPRESSION:
No acute intracranial abnormality noted.
No focal hemodynamically significant stenosis, aneurysm or occlusion.
Dizziness
Orthostasis
-unclear etiology of persistent orthostasis as patient states he has been eating and drinking normally
-give 1L IVF now and recheck orthostats afterwards
-F/U TTE results
-tele with HR high 50's, low 60's - HR increased appropriately past orthostatic VS
-MRI results above
-TSH, B12 WNL
Anticipated Discharge: Within 24 hours
Subjective/Interval History
-
Date of Service: January 19, 2024
dizzy with standing
no chest pain
no weakness, numbness/tingling
Objective Data
-
Labs:
Laboratory Results
01/19/24
08:52
WBC 4.1 L
Hgb 15.2
Hct 46.5
Plt Count 167
Sodium 137
Potassium 4.5
Chloride 104
Carbon Dioxide 26
BUN 25 H
Creatinine 1.2
Glucose 145 H
Calcium 9.3
Vital Signs:
Vital Signs
Temp Pulse Resp BP Pulse Ox
98.0 F 82 16 132/81 94
01/19/24 09:08 01/19/24 09:08 01/19/24 09:08 01/19/24 09:08 01/19/24 09:08
I&O
01/18/24 01/19/24 01/20/24
06:59 06:59 06:59
Intake Total 720 / 720
Output Total 0 / 0
Balance 720 / 720
Review of Systems
-
History Source: Patient
All other systems: Reviewed and negative
Physical Exam
-
General: No Apparent Distress
HEENT: PERRLA
Respiratory: Clear to Auscultation; Negative Wheezes
Cardiac: Regular Rhythm and S1/S2
GI: Soft and Nontender
Musculoskeletal: No Edema
Skin: Warm and Dry; Negative Rash
Neuro: AO x 3
Psych: Calm
Data Reviewed
-
Diagnostic Radiology: Report Reviewed by me
Labs: Labs Reviewed by me
[2024-01-19] MEDS: NSS 1000 IV (11:31)
[2024-01-19 11:51] LABS: Glucose - Point of Care 287 mg/dl (70-99)
[2024-01-19 12:15] LABS: Troponin I < 0.012 ng/ml
[2024-01-19] MEDS: NOVOLOG FLEXPEN-LOW RESISTANCE 3 UNITS SC (12:15)
--- NOTE | 2024-01-19 12:50 | PTCARENOTE ---
01/18- [facility]: LAY: 131/81, 62; SIT: 134/88, 75; STAND: 132/90, 84 (See Orthostatic VS Intervention), reported to Physician via TT as ordered. Patient reports momentary dizziness from [id number] position only, and only for
~5seconds. Dizziness self-resolved, Posture remains straight and steady.
--- NOTE | 2024-01-19 13:20 | W.DS.TRANS ---
DC Summary - [employer]
-
Discharge Instructions:
Discharge Diagnosis/Procedures orthostatic hypotension
Diet Low Cholesterol
Activity As tolerated
Driving Restrictions As prior to admission
Bathing Restrictions None
Instructions: Dehydration, Adult (DC)
Stand-Alone Forms:
Changes to Home Medications: No
Discharge Medications:
DC Medications w/original date entered in [employer]
metformin 1,000 mg tablet 1,000 mg PO BID Diabetes 03/02/17
Home Medication Changes
Pending Results: No
--- NOTE | 2024-01-19 13:39 | PTOTSP ---
SPEECH THERAPY SWALLOW AND SPEECH/LANGUAGE/COGNITIVE COMMUNICATION EVALUATION:
Patient presents with oropharyngeal swallow function grossly WFL at this time. Recommend Regular texture diet, thin liquids. Medications whole with liquid as best tolerated. Swallow therapy is not indicated at this time; sign off swallow therapy.
Patient exhibits speech/language/cognitive communication skills grossly WFL at this time. Patient appears to be at baseline level of functioning. No speech therapy services are indicated at this time. Speech therapy to sign off.
RECOMMEND:
1) Regular texture diet, thin liquids
2) Medications whole with liquid as best tolerated
3) Swallow and speech therapy are not indicated at this time
--- NOTE | 2024-01-19 14:10 | W.DCSUMMARY ---
Discharge Summary
Discharge Data
Date of Admission: 01/18/24
Date of Discharge: 01/19/24
-
Pending Results: No
Hospital Course
Discharging Physician : Dr. Nahed vAalos
Disposition : Home
Primary care physician : Dr. John Miller
Principal Discharge diagnosis : Orthostasis
Hospital Course :
Mr. Marline Edward is a 53 yo man with hx DM who presents to the ER with progressive dizziness and difficulty walking. He was seen at urgent care where noticed to have positive orthostatic VS and therefore sent to the ER. Head CT without acute event.
Labs essentially unremarkable. EKG with sinus bradycardia. Exam without nystagmus, no facial asymmetry, no focal neurological deficits. Patient was seen by neurology in the ER and admitted to observation for further work-up of symptoms likely
attributable to orthostasis versus brainstem stroke.
The following day, an MRI and MRA were obtained without acute abnormality. TTE with normal EF 50-55% and no significant valvular disease.
Patient worked with PT and was noted to have persistent orthostasis. He had no overt loss of balance. He was given a bolus of IVF and orthostats repeated with improvement (increase in HR from 62 to 84 but BP 131/81 --> 134/88 --> 132/90). Patient
had a few seconds of dizziness that quickly resolved. When I spoke to him following the fluid administration he stated that was feeling much better and wished to go home.
Etiology likely dehydration/orthostasis as symptoms and vital signs improved with fluids. Although he was bradycardic, his HR was mainly in 60's while awake and increased to 80's while standing showing ability of HR to compensate, therefore
bradycardia does not explain etiology of symptoms.
Patient is given information on preventing dehydration. He is told to follow up with his PCP within the next week.
Time spent on discharge was 35 minutes.
Important imaging findings :
TTE 01/19/24
CONCLUSIONS
Normal left ventricular systolic function. Left ventricular ejection fraction
is 50-55% by visual assessment.
No significant valvular disease.
No prior study available for comparison.
BRAIN MRI 01/19/24
HEAD MRA
NECK MRA
IMPRESSION:
No acute intracranial abnormality noted.
No focal hemodynamically significant stenosis, aneurysm or occlusion.
Procedure findings :
Discharge Plan
-
Patient Disposition: Home (Routine Discharge)
Discharge Diagnosis/Procedures: orthostatic hypotension
Condition: Good
Diet: Low Cholesterol
Activity: As tolerated
Driving Restrictions: As prior to admission
Bathing Restrictions: None
Activity Restrictions/Additional Instructions:
Your symptoms are likely secondary to dehydration as they improved with fluids. Your Brain MRI and echo (ultrasound of your heart) are without abnormality. Your heart rate was in the 50's at rest but when you stood up it increased to 70's and 80's
which is reassuring that your heart is pumping faster when it needs to.
It is important that you stay hydrated and drink at least 64 oz (8 cups) of water per day. It is good to include gatorade or Pedialyte which also has electrolytes.
Please follow up with your primary care doctor within the next week.
You have elevated cholesterol, but it is not indicated to start cholesterol lowering agents at this time. Please eat a heart healthy, low cholesterol diet. Continue exercising and follow up closely with your PCP.
Instructions: Dehydration, Adult (DC)
Referrals:
John Miller MD [Family Provider] - in less than 1 week
Prescriptions:
Continued
metformin 1,000 MG tablet
1,000 mg PO BID
Discharge Orders:
Discharge Patient (As Directed); Ordered 01/19/24
Ordered By: Nahed Avalos
Discharge Date and Time
Print Language: ALGERIAN
--- NOTE | 2024-01-19 14:13 | CM ---
Patient seen bedside.
IA completed.
Lives with spouse and sons.
2 story home, independent prior to admission.
Drives and works.
Denies home care needs.
PCP: Dr Miller
Pharmacy: [facility]
Plan:home no needs.
== END 2024-01-19 14:37 | disposition home or self-care (01) ==
LOC: 4 WEST ACU 14:06
PROVIDERS: Physician Assistant; Registered Nurse; ADMITTING PHYSICIAN Student in an Organized Health Care Education/Training Program; CONSULT PHYSICIAN Psychiatry & Neurology Neurology; EMERGENCY PHYSICIAN Emergency Medicine; FAMILY PHYSICIAN Internal Medicine
DX: I95.1 Orthostatic hypotension (principal); R42 Dizziness and giddiness; E11.43 Type 2 diabetes mellitus with diabetic autonomic (poly)neuropathy; E78.00 Pure hypercholesterolemia, unspecified; R26.2 Difficulty in walking, not elsewhere classified; Z87.442 Personal history of urinary calculi; R27.0 Ataxia, unspecified; Z79.84 Long term (current) use of oral hypoglycemic drugs; Z79.52 Long term (current) use of systemic steroids
CPT/HCPCS: 70450; 70544; 70548; 70551; 80048; 80053; 80061; 82607; 82728; 82746; 82962; 83036; 84443; 84484; 85025; 85027; 92523; 92610; 93005; 93306; 97162; 97166; 99285; A9585; G0378; J1240